=== PATIENT | male | born 1970 | race Caucasian/White ===

== ENCOUNTER 2024-02-07 10:14 | Emergency (ER) | payer OTHER, SELFPAY ==
[2024-02-07 10:19] VITALS: BP 169/102
[2024-02-07 12:18] LABS: Hematocrit 41.5 % (39.0-52.0); Hemoglobin 14.1 g/dL (13.0-18.0); Mean Corpuscular Hgb 31.3 pg (27.0-31.0); Mean Platelet Volume 9.5 fL (7.4-10.4); Platelet Count 258 10^3/uL (130-400); Red Blood Cell Count 4.51 10^6/uL (4.70-6.10); Red Cell Dist. Width 11.9 % (11.5-14.5); White Blood Cell Count 8.3 10^3/uL (4.8-10.8)
--- NOTE | 2024-02-07 12:21 | ED.GENMED ---
History of Present Illness
General
Chief Complaint: Crisis Evaluation
Source: patient
Exam Limitations: none
Time Seen by Provider: 02/07/24 10:29
Nursing documentation reviewed up to this point in time: agreed with
History of Present Illness
History of Present Illness:
Patient with history of bipolar disorder and depression, presents to ED from home, accompanied by his , secondary to erratic behavior, as he has stopped taking medications for the past 1 year. Patient however, denies suicidal or homicidal
ideation. Unfortunately, per spouse, patient also has stopped eating at home.
Past History
Past History
ED Past Medical History: Other (Herniated disc, Sinusitis, Multiple Pneumo's,)
ED Past Surgical History: Other (Surg. for deviated septum, Hernia repair)
Social History
Tobacco: Smoker
Alcohol: Occasional
Personal:
Living: with family
Review of Systems
Review of Systems
Allergies reviewed?: Yes
All Other Systems: ROS reviewed and negative except as documented in HPI and ROS
Constitutional: Reports no symptoms
Respiratory: Reports no symptoms
Cardiac: Reports no symptoms
ABD/GI: Reports no symptoms
Musculoskeletal: Reports no symptoms
Skin: Reports no symptoms
Neurological: Reports no symptoms
Psychiatric: Reports other (irrational thoughts/erratic behavior)
Phy Exam
Physical Exam
Physical Exam:
Physical Exam
General: no apparent distress, not acutely ill. afebrile
Head: nc/at. eomi
Neck: supple. no meningeal signs.
Heart: s1/s2 regular rate and rhythm, no murmur. equal radial pulses.
Lungs: no acute respiratory distress. clear bilaterally
Abdomen: normal bowel sounds. not tender.
Neuro: alert and oriented x 3. no focal neurological deficits
Skin: no rash
Psychiatric: well kept. interactive and cooperative
Extremities: no edema. no calf tenderness.
Course
Orders/Labs/Results
Orders:
Orders
02/07/24 10:26
Crisis Consult Urgent
Reason for Consult: manic
02/07/24 11:58
0.9% Sodium Chloride 1000 ml [Nss] 1,000 ml IV BOLUS
02/07/24 12:10
Acetaminophen Urgent
Alcohol Urgent
Complete Blood Count/No Diff Urgent
Comprehensive Metabolic Panel Urgent
Salicylate Urgent
TSH Reflex To Free T4 Urgent
Comment: ADD
02/07/24 12:25
Add On- LAB Urgent
Tests Added?: TSH to reflex Free T4
02/07/24 13:56
Haloperidol Lactate [Haldol] 5 mg IV NOW STA
02/07/24 14:06
Urine Drug Abuse Screen Urgent
Date Specimen was Collected: 02/07/24
Time Specimen was Collected: 14:02
02/07/24 14:15
Electrocardiogram (*1) Urgent
Reason for Study: QTc Monitoring
EKG- Treatment ONCE
02/07/24 14:52
Lorazepam [Ativan] 1 mg PO Q4HPRN PRN
Abnormal Lab Results
02/07/24 02/07/24
12:10 14:06
RBC 4.51 L 10^6/uL
(4.70-6.10)
MCH 31.3 H pg
(27.0-31.0)
Glucose 171 H mg/dl
(70-99)
Total Bilirubin 1.9 H mg/dl
(0.2-1.3)
Albumin 5.2 H g/dl
(3.5-5.0)
Salicylates < 1.0 L mg/dl
(2.0-20.0)
Acetaminophen < 10 L ug/ml
(10-30)
U Marijuana (THC) Screen Positive H
(Negative)
02/07/24 12:10
02/07/24 12:10
Vital Signs
Initial and Last Documented VS:
Initial Vital Signs
Temp Pulse Resp BP Pulse Ox
98.8 F 113 18 169/102 100
02/07/24 10:19 02/07/24 10:19 02/07/24 10:19 02/07/24 10:19 02/07/24 10:19
Last Documented Vital Signs
Temp Pulse Resp BP Pulse Ox
98.8 F 113 18 169/102 100
02/07/24 10:19 02/07/24 10:19 02/07/24 10:19 02/07/24 10:19 02/07/24 10:19
MDM/Problems Addressed
MDM/Problems Addressed:
Patient evaluated by [facility] worker.
302 petition filed by spouse, upheld by psychiatrist () during an ED evaluation.
Pt medically cleared and will be transferred to in-patient psychiatric facility for further evaluation and treatment.
Pt provided with haldol, after reviewing EKG. Further treatment recommendations provided by .
*Critical Care Note
Total Time (30-74mins, 75-104mins- exclusive of procedures): Not Applicable
ED Attending Note
-
Portions of this chart may have been created with voice recognition software.� Occasional wrong word or��sound alike� substitutions may have occurred due to the inherent limitations of voice recognition software.
Discharge Plan
Departure
Patient Disposition: Psych Facility
Date of Disposition: 02/07/24
Time of Disposition: 12:24
Discharge Problem:
Manic behavior
Interventions
Interventions:
*Risk Screen - Suicide Last Done: 02/07/24 10:19
*General Assessment Last Done: 02/07/24 10:19
*Neglect/Abuse Screening Last Done: 02/07/24 10:19
ED- Fall Risk Assessment Last Done: 02/08/24 01:04
*ED COVID-19 Vaccine History Last Done: 02/07/24 10:19
*Nursing Disposition Last Done: 02/08/24 01:04
ED-Psychological Assessment Last Done: 02/07/24 14:36
Discharge Date and Time
Discharge Date/Time: 02/08/24 01:05
Print Language: KHMER
[2024-02-07 12:36] LABS: ALT (SGPT) 20 U/L (0-50); AST (SGOT) 23 U/L (17-59); Acetaminophen < 10 ug/ml (10-30); Albumin 5.2 g/dl (3.5-5.0); Alkaline Phosphatase 62 U/L (38-126); Blood Urea Nitrogen 9 mg/dl (9-20); Calcium 9.7 mg/dl (8.4-10.2); Carbon Dioxide 26 mmol/L (22-30); Chloride 102 mmol/L (98-107); Glucose 171 mg/dl (70-99); Potassium 3.8 mmol/L (3.5-5.1); Salicylate < 1.0 mg/dl (2.0-20.0); Sodium 139 mmol/L (135-145); Total Bilirubin 1.9 mg/dl (0.2-1.3); Total Protein 7.8 g/dl (6.3-8.2); eGFR > 60.00
[2024-02-07 12:37] LABS: Alcohol None Detected
[2024-02-07] MEDS: NSS 1000 IV (13:02)
[2024-02-07 13:44] LABS: TSH Reflex To Free T4 1.61 uIU/ml (0.47-4.68)
[2024-02-07] MEDS: HALDOL 5 MG IV (14:02)
[2024-02-07 14:39] LABS: Amphetamines Negative (Negative); Barbiturates Negative (Negative); Benzodiazepines Negative (Negative); Buprenorphine Negative (Negative); Cocaine Negative (Negative); Marijuana Positive (Negative); Methadone Negative (Negative); Methamphetamines Negative (Negative); Opiates Negative (Negative); Phencyclidine Negative (Negative); Tricyclic Antidepressants Negative (Negative)
--- NOTE | 2024-02-07 14:53 | CON.MD ---
Consultation - Medical
-
patient seen chart reviewed. and mom at bedside. spoke with dr campbell. patient is a 53 year old male w hx bipolar d/o. he was hospitalized a few years ago in a depressive episode in which he became suicidal. he was treated at [facility] on
lexapro and seroquel. subsequently he attended o/p at [facility] and then went on to out pt therapy w dr ashley johnson in [place]. some months ago he stopped taking his medications. he has become progressively more disorganized and preoccupied
with god and what sounds like delusional material. he has been struggling according to family at work (he works in [employer]) and family worries he will lose his job as he has many meetings next week which are very important to his company. he has also
been charging large amounts of money and has had to secure all of their credit cards and his access to [employer]. filed a 302 commitment which alleges patient is not eating and has lost ten lbs in 30 days. he told me he does not need to sleep.
he has said he is receiving messages from god and becomes angry and agitated when challenged. he has been using daily cannabis and last night used
'shrooms. he says he does not need medications or psychiatric help.
past psych hx see above patient has experienced debilitating depression as well as ute
medical hx generally healthy only abn lab is bili 1.9 tells me this has been known to them before (?nini[facility] ) ecg is normal blood sugar elevated but not fasting. bp 160/102 but was taken on admit to er before he received haldol prn
agitation.
fh + for psych disorders two maybe three cousins suicided. fh of substance abuse occasional etoh.
substance abuse smokes cannabis frequently. feels this is directly correlated with exacerbations of his psych illness. uses shrooms occasionally tox + cannabis
social hx supportive two sons ages 17 and 15
mse alert ox3 speech non stop rapid and pressured. thought process tangential circumstantial preoccupied with god and other seemingly delusional material affect labile mood grandiose denies si hi aver intell insight judgment lacking
dx bipolar manic w psychotic fx cannabis use d/o other substance use (shrooms)
plan will uphold 302. patient is not suicidal or homicidal but as he descends further into ute and psychosis he puts himself and his carreer as well as family's livelihood at risk. also he has become agitated with and mother and this could
worsen. patient needs mood stabilizing medication. will begin search for a psychiatric bed. patient should consider refraining from cannabis which is likely exacerbating psychosis. ativan prn agitation has already received haldol.
[2024-02-07] MEDS: ATIVAN 1 MG PO (15:06)
--- NOTE | 2024-02-07 19:00 | EDRN ---
Report received, patient is sleeping spoke with this , she asked where he was going, let her know he would be leaving around 2200, she wanted to speak with them, so called them over to talk with her.
--- NOTE | 2024-02-07 22:39 | EDRN ---
Crisis called, will be another hour for transport, patient resting comfortably at this time, will continue to monitor
== END 2024-02-08 01:05 ==
LOC: EMR 10:14
PROVIDERS: EMERGENCY PHYSICIAN Emergency Medicine; OTHER PHYSICIAN Psychiatry & Neurology Psychiatry
DX: F31.2 Bipolar disorder, current episode manic severe with psychotic features (principal); F12.90 Cannabis use, unspecified, uncomplicated; F19.90 Other psychoactive substance use, unspecified, uncomplicated; F17.200 Nicotine dependence, unspecified, uncomplicated
CPT/HCPCS: 96374; 96361; 99285; 80053; 80143; 80179; 80306; 82077; 84443; 85027; 93005